=== PATIENT | female | born 1985 | race Hispanic/Latino ===

== ENCOUNTER 2017-09-22 20:46 | Emergency (ER) | payer OTHER ==
[2017-09-22 20:52] VITALS: BP 174/94
--- NOTE | 2017-09-22 21:25 | Emergency Department Report ---
ED Female HPI - General Chief complaint: Urogenital-Female Stated complaint: POSSIBLE YEAST INFECTION FROM ANTIBIOTICS Time Seen by Provider: 09/22/17 21:10 Source: patient, family ( ) Mode of arrival: Ambulatory Limitations: No Limitations - History of Present Illness Initial comments: Patient reports that she was started on antibiotics for bacterial vaginosis last week. She says she had a pelvic exam done under [facility] last week and she had STD testing and and everything was normal except she had bacterial vaginosis so she started Flagyl and now she feels itchy in her vaginal area with some discharge. Patient here to be checked for yeast infection. Patient said that her [facility] did complete pelvic exam on her and she does not want to be tested for anything but yeast infection. I told her that the swab that check for yeast infection also test for BV and Trichomonas and she agrees to be tested. Denies any vaginal bleeding . Denies any abdominal or back pain. Denies any nausea or vomiting. Denies any fever or chills. She said she has 1 more day of Flagyl left to take. MD Complaint: vaginal discharge Onset/Timin -: days(s) Radiation: non-radiating Severity: mild, severe Severity scale (0 -10): 7 Quality: burning Consistency: constant Improves with: none Worsens with: urination Are you Now?: No Last Menstrual Period: 08/29/17 EDC: 06/05/18 Associated Symptoms: vaginal discharge, other (redness the vaginal area). denies: vaginal bleeding, abdominal pain, nausea/vomiting, fever/chills, headaches, loss of appetite, dysuria, hematuria, rash, seizure, shortness of breath, syncope, weakness - Related Data Sexually active: No Previous Rx's Medication Instructions Recorded Last Taken Type Fluconazole [Diflucan TAB] 200 mg PO QDAY 3 Days #3 tablet 09/22/17 Unknown Rx Nystatin Oint [Mycostatin Oint] 1 applicatio TP BID 7 Days #1 tube 09/22/17 Unknown Rx metroNIDAZOLE [Flagyl] 500 mg PO Q12HR 7 Days #14 tab 09/22/17 Unknown Rx Allergies Allergy/AdvReac Type Severity Reaction Status Date / Time No Known Allergies Allergy Unverified 09/22/17 21:04 ED Review of Systems ROS: Stated complaint: POSSIBLE YEAST INFECTION FROM ANTIBIOTICS Other details as noted in HPI Comment: All other systems reviewed and negative Constitutional: no symptoms reported Respiratory: no symptoms reported Cardiovascular: denies: chest pain, palpitations, dyspnea on exertion, edema, syncope, paroxysmal nocturnal dyspnea Gastrointestinal: denies: abdominal pain, nausea, vomiting, diarrhea, constipation, hematemesis, melena, hematochezia Genitourinary: discharge (vaginal discharge), other (external vaginal pain and itching). denies: urgency, dysuria, frequency, hematuria, abnormal menses, dyspareunia Musculoskeletal: denies: back pain, arthralgia, myalgia Skin: denies: rash Neurological: denies: headache, weakness ED Past Medical Hx - Past Medical History Previous Medical History?: Yes Additional medical history: bacterial vaginosis - Surgical History Past Surgical History?: Yes Hx Cholecystectomy: Yes - Family History Family history: no significant - Social History Smoking Status: Current Every Day Smoker Substance Use Type: Alcohol - Medications Home Medications: Home Medications Medication Instructions Recorded Confirmed Last Taken Type Fluconazole [Diflucan TAB] 200 mg PO QDAY 3 Days #3 tablet 09/22/17 Unknown Rx Nystatin Oint [Mycostatin Oint] 1 applicatio TP BID 7 Days #1 tube 09/22/17 Unknown Rx metroNIDAZOLE [Flagyl] 500 mg PO Q12HR 7 Days #14 tab 09/22/17 Unknown Rx ED Physical Exam - General Limitations: No Limitations General appearance: alert, in no apparent distress - Head Head exam: Present: atraumatic, normocephalic, normal inspection - Eye Eye exam: Present: normal appearance, PERRL, EOMI. Absent: periorbital swelling , periorbital tenderness Pupils: Present: normal accommodation - ENT ENT exam: Present: normal exam, normal orophraynx, mucous membranes moist - Neck Neck exam: Present: normal inspection, full ROM, other (no C-spine tenderness). Absent: tenderness, meningismus, lymphadenopathy - Respiratory Respiratory exam: Present: normal lung sounds bilaterally. Absent: respiratory distress, chest wall tenderness - Cardiovascular Cardiovascular Exam: Present: normal rhythm, tachycardia, normal heart sounds. Absent: systolic murmur, diastolic murmur - GI/Abdominal GI/Abdominal exam: Present: soft, normal bowel sounds. Absent: distended, tenderness, guarding, rebound, rigid, organomegaly, mass, bruit, pulsatile mass , hernia - External exam: Present: normal external exam, erythema. Absent: swelling, lesions, lacerations, ecchymosis, bleeding Speculum exam: Present: vaginal discharge, cervical discharge, vaginal bleeding. Absent: normal speculum exam, erythema, foreign body, tissue, laceration Bi-manual exam: Present: normal bi-manual exam - Extremities Exam Extremities exam: Present: normal inspection, full ROM, normal capillary refill , other (no clubbing, cyanosis or edema. +2+ distal extremities. No neurovascular compromise). Absent: tenderness, pedal edema, joint swelling, calf tenderness - Back Exam Back exam: Present: normal inspection, full ROM, other. Absent: tenderness, CVA tenderness (R), CVA tenderness (L), muscle spasm, paraspinal tenderness, vertebral tenderness, rash noted - Neurological Exam Neurological exam: Present: alert, oriented X3, reflexes normal. Absent: normal gait, motor sensory deficit - Psychiatric Psychiatric exam: Present: normal affect, normal mood - Skin Skin exam: Present: warm, dry, intact, normal color. Absent: rash ED Course Vital Signs 09/22/17 09/22/17 20:50 21:59 Temperature 98.7 F Pulse Rate 102 H 92 H Respiratory 18 Rate Blood Pressure 174/94 O2 Sat by Pulse 95 Oximetry - Reevaluation(s) Reevaluation #1: 09/22/17 22:14 Patient favor throughout ED stay. ED Medical Decision Making - Lab Data Lab Results 09/22/17 Range/Units 21:20 Urine Color Straw (Yellow) Urine Turbidity Clear (Clear) Urine pH 7.0 (5.0-7.0) Ur Specific Mouthcard 1.014 (1.003-1.030) Urine Protein <15 mg/dl (Negative) mg/dL Urine Glucose (UA) Neg (Negative) mg/dL Urine Ketones Neg (Negative) mg/dL Urine Blood Neg (Negative) Urine Nitrite Neg (Negative) Urine Bilirubin Neg (Negative) Urine Urobilinogen < 2.0 (<2.0) mg/dL Ur Leukocyte Esterase Neg (Negative) Urine WBC (Auto) < 1.0 (0.0-6.0) /HPF Urine RBC (Auto) 1.0 (0.0-6.0) /HPF U Epithel Cells (Auto) 1.0 (0-13.0) /HPF Urine Mucus Few /HPF Urine HCG, Qual Negative (Negative) Wet prep positive for BV. Less than 20% clue cells. Trichomonas and yeast negative - Medical Decision Making ED course: An here report that she feels she has a yeast infection because she has been on Flagyl she's been taking in since last week. She said she has one more day to finish her Flagyl. She said she was tested for STD as her [facility] last week and also had a pelvic exam done and she was found to have bacterial vaginosis and all her other tests were negative. Patient had wet prep here tonight and it showed that she had less than 20% bacterial vaginosis and also external vaginal area erythema with tenderness to palpate. She has vulvovaginitis and still has bacterial vaginosis. Negative fot trich and yeast. Urinalysis and urine test is negative. Discussed the patient her diagnosis and treatment plan and she voiced understanding. Patient will be given another dose of Flagyl to treat bacterial vaginosis and treatment for vulvovaginitis. Patient discharged home with her friend in stable condition with prescription for Diflucan on once daily 3 days, nystatin cream, Flagyl. I discussed with her her urinalysis and vaginal swab result and she voiced understanding. Patient to follow-up with her [facility] in 7-10 days. Critical care attestation.: If time is entered above; I have spent that time in minutes in the direct care of this critically ill patient, excluding procedure time. ED Disposition Clinical Impression: Vulvovaginitis, Bacterial vaginosis, Vaginal discharge, Morbid obesity with BMI of 50.0-59.9, adult Disposition: DC- TO HOME OR SELFCARE Is pt being admited?: No Does the pt Need Aspirin: No Condition: Stable Instructions: Bacterial Vaginosis (ED), Vulvovaginal Candidiasis (ED), Weight Management (ED), Obesity (ED) Additional Instructions: Please practice safe sex Follow-up with your [facility] 7- 10 days Urinalysis normal test was negative. Your Trichomonas and yeast test was negative Please avoid drinking all call while taking Flagyl as this medication causes negative reaction with all call Paper medication as prescribed increase her fluid intake Prescriptions: Fluconazole [Diflucan TAB] 200 mg PO QDAY 3 Days #3 tablet metroNIDAZOLE [Flagyl] 500 mg PO Q12HR 7 Days #14 tab Nystatin Oint [Mycostatin Oint] 1 applicatio TP BID 7 Days #1 tube Referrals: you're, [facility] [Other] - 7-10 days Forms: STI Treatment and Prevention, Work/School Release Form(ED)
[2017-09-22 21:45] LABS: Bilirubin,Urine NEG (Negative); Blood,Urine NEG (Negative); Ketones,Urine NEG (Negative); Leukocyte Esterase,Urine NEG (Negative); Mucus,Urine FEW /HPF; Nitrite,Urine NEG (Negative); Protein,Urine <15 mg/dL mg/dL (Negative); Urobilinogen,Urine < 2.0 mg/dL (<2.0); WBC,Urine < 1.0 /HPF (0.0-6.0)
== END 2017-09-22 22:29 | disposition home or self-care (01) ==
LOC: ED 20:46
DX: N76.0 Acute vaginitis (principal); E66.01 Morbid (severe) obesity due to excess calories; Z68.43 Body mass index [BMI] 50.0-59.9, adult; F17.200 Nicotine dependence, unspecified, uncomplicated
CPT/HCPCS: 81001; 81025; 87210; 99284

== ENCOUNTER 2018-01-17 20:46 | Emergency (ER) | payer OTHER ==
--- NOTE | 2018-01-17 21:51 | Cat Scan Report ---
FINAL REPORT PROCEDURE: CT HEAD/BRAIN WO CON TECHNIQUE: Computerized tomography of the head was performed without contrast material. HISTORY: head injury. Pain. COMPARISON: No prior studies are available for comparison. FINDINGS: Brain: Brain density appears normal. No evidence of intracranial hemorrhage. No parenchymal hemorrhage, mass lesions or mass effect are seen. No abnormal extraxial fluid collects or masses are seen. Ventricles: Ventricles are normal size and are midline. Bone Windows: No evidence of skull fracture. Paranasal sinuses: There is minimal mucosal thickening medially in the right maxillary sinus. The paranasal sinuses otherwise are clear. Nasal septum is mildly deviated to the right. Mastoid air cells: Clear IMPRESSION: Negative unenhanced CT of the brain. No evidence of intracranial hemorrhage or skull fracture.
[2018-01-18] MEDS ORDERED: TORADOL IM ONE (03:24)
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
[2018-01-18 04:15] VITALS: BP 162/86
== END 2018-01-18 04:10 | disposition home or self-care (01) ==
LOC: ED 20:46
DX: S06.0X0A Concussion without loss of consciousness, initial encounter (principal); Z90.49 Acquired absence of other specified parts of digestive tract; F17.200 Nicotine dependence, unspecified, uncomplicated; W22.8XXA Striking against or struck by other objects, initial encounter; Y93.89 Activity, other specified; Y92.89 Other specified places as the place of occurrence of the external cause; Y99.8 Other external cause status
CPT/HCPCS: 70450; 96372; 99283; J1885